=== PATIENT | male | born 1995 | race Caucasian/White ===

== ENCOUNTER 2023-09-13 09:53 | Emergency (ER) | payer BC, SELFPAY ==
[2023-09-13 09:54] VITALS: BP 129/74; PULSE 82; RESP 18; TEMP 36.4; O2SAT 99; BMI 41.1
--- NOTE | 2023-09-13 10:26 | EDS_ITS ---
HPI HPI - GI History of Present Illness Chief Complaint: Flank Pain Detail of Chief Complaint: Right flank pain last 2 days. Informant: patient Abdominal Pain/Flank Pain Onset: Today and Yesterday Timing: Intermittent Quality: Aching Location: Right Flank Current Severity: Mild Maximum Severity: Moderate Worsened by: Nothing Relieved by: Nothing Nausea/Vomiting/Emesis GI Symptom: Positive for Nausea and Vomiting Onset: Today and Yesterday Severity: Mild Diarrhea/Melena/Hematochezia GI Symptom: Negative for Diarrhea or Melena Associated Symptoms Associated Symptoms: Negative for Dysuria, Frequency, Hematuria or Urgency Narrative Narrative: 28-year-old male no seen past medical history. Prior thyroidectomy. Right flank pain a week ago resolved last 2 days has had similar pain. Currently is m ild. He has had some associated nausea and vomiting. No diarrhea. No fever. No dysuria or hematuria. He himself never had a kidney stone has been diagnosed with. However his dad and uncles of all had kidney stones. Prior similar symptoms: No Recent Illness/Hospitalization: No PFSH PFSH Medical History Hypothyroidism Home Medications levothyroxine 150 mcg tablet 150 mcg PO DAILY 08/30/17 [History Last Taken Unknown] naproxen 500 mg tablet 500 mg PO BID PRN #20 tabs 08/30/17 [Rx Last Taken Unknown] ondansetron 4 mg disintegrating tablet 4 mg PO Q8H PRN PRN Nausea #10 tabs 08/30/17 [Rx Last Taken Unknown] Allergy/AdvReac Type Severity Reaction Status Date / Time No Known Allergies Allergy Verified 09/13/23 09:53 Surgical History no surgical history Social History Smoking Status: Never smoker ROS ROS ED ROS Narrative Right flank pain. Nausea vomiting. Review of Systems ROS Unobtainable: Denies due to encephalopathy Constitutional Constitutional ED: Denies chills or fever(s) ENT ENT ED: Denies ear pain Cardiovascular Cardiovascular: Denies chest pain Respiratory/Chest Respiratory/Chest: Denies cough or dyspnea Gastrointestinal Gastrointestinal: Reports nausea, vomiting and other Details: Right flank pain ; Denies abdominal pain, constipation, diarrhea or melena Genitourinary Genitourinary ED: Denies dysuria or hematuria Musculoskeletal Musculoskeletal: Denies arthralgias Integumentary Denies abscess or Abrasions Neurologic Neurologic: Denies headache(s) Psychiatric Psychiatric: Denies anxiety or depression Endocrine Endocrinology: Denies polydipsia or polyphagia Hematologic/Lymphatic Hematologic/Lymphatic: Denies easy bleeding, easy bruising or lymphadenopathy Allergic/Immunologic Allergic/Immunologic ED: Denies mouth swelling, tongue swelling or urticaria EXAM Physical Exam Narrative Exam Narrative: 28-year-old male no acute distress. Vital signs stable afebrile. H EENT exam normal. Neck nontender. Lungs clear to auscultation bilaterally. Heart regul ar rhythm abdomen is soft and nontender. Normal bowel sounds no peritoneal signs. Both the right upper quadrant and right lower quadrant completely nontender. No distention. Back nontender. No CVA tenderness. Moving all 4 extremities. Nontender no edema. Neurologically is awake and alert with no focal motor deficits. Benign exam. Const Vital Signs: 09/13/23 09:54 Temperature 97.5 F L Temperature Source Temporal Pulse Rate 82 Respiratory Rate 18 Blood Pressure 129/74 H Blood Pressure Mean 92 Pulse Ox 99 Oxygen Delivery Method Room Air Positive well nourished and well developed; Negative for cachectic, contractures or unkempt General Appearance ED: well developed and NAD; Negative for unkempt, cachectic, contractures or pallor Nutritional Appearance: Negative for cachectic HEENT Reports moist mucous membranes normocephalic and atraumatic; Negative for trauma or tenderness Eyes PERRL and EOMs intact bilaterally General Eye ED: Negative for pale conjunctiva, scleral icterus or other Neck no lymphadenopathy, supple and no JVD General: Negative for tenderness Lymph Lymphatic: Negative for other Resp normal respiratory effort and clear to auscultation bilaterally Effort and Inspection: Negative for respiratory distress or retractions Auscultation: Negative for rales, rhonchi or wheezes Cardio regular rate, regular rhythm, S1 normal heart sound, S2 normal heart sound and no murmurs Rate: Negative for bradycardia or tachycardic Rhythm: Negative for abnormal rhythm GI non-tender, non-distended and no masses Inspection: Negative for abdominal distention Auscultation: normoactive bowel sounds Palpation: soft; Negative for tender, guarding or rigid Back/Spine no CVA tenderness General Back: Negative for CVA tenderness Cervical Spine: Negative for cervical spine tenderness Thoracic Spine / Upper Back: Negative for thoracic spinal tenderness Lumbar Spine / Lower Back: Negative for lumbar spinal tenderness Extremity General Extremety ED: Negative for edema or tenderness General Extremity: Negative for edema Neuro CN's II-XII intact bilaterally, moves all extremities and no sensory deficits noted Sensorium / Orientation: alert, oriented to person, oriented to place and oriented to time; Negative for orientation impaired, confused, lethargic or stuporous Motor Exam: strength 5/5 throughout Psych mental status grossly normal and thought process normal Appearance: Negative for unkempt Attitude: No agitated Mood & Affect: Negative for depressed, anxious or tearful Skin no wounds General Skin Exam: Negative for jaundice or pallor Lesions: no lesions Rashes: no rashes Trauma: Negative for abrasion Nails: Negative for discolored MDM MDM MDM Narrative Medical decision making narrative: 28-year-old male right flank pain. CAT scan labs and urinalysis being obtained. Currently he is not having any significant pain and did not want any pain medication. Repeat exam patient is doing well at 12:30 PM. Currently is in no pain. We discussed the test results and the CAT scan showing the kidney stone. He did not want any narcotic pain medications for home. Use Tylenol and Motrin. History & Record Review Discussion w/independent historian: Patient Additional record(s) reviewed:: Prior outpatient record, Prior ED visit and Prior labs Lab Data Attestation: I reviewed the patient's lab results. Lab results narrative: CBC normal. White count of 10. H&H 14 and 42. Platelets 355. Electrolytes show a gap of 7 normal BUN of 10 creatinine 0.9. Glucose 112 Urinalysis is normal. No nitrates. No bacteria. No red or white cells. CT flank shows a 2 mm right UVJ stone. Labs: Laboratory Results - last 24 hr 09/13/23 09/13/23 10:30 11:56 WBC 10.3 RBC 4.64 Hgb 14.2 Hct 42.3 MCV 91.2 MCH 30.6 MCHC 33.6 RDW Std Deviation 44.3 H RDW Coeff of Paco 13.3 Plt Count 355 MPV 9.8 Immature Gran % (Auto) 0.200 Neut % (Auto) 84.5 H Lymph % (Auto) 9.0 L Hendricks % (Auto) 5.6 Eos % (Auto) 0.3 Baso % (Auto) 0.4 Absolute Neuts (auto) 8.7 H Absolute Lymphs (auto) 0.92 Nucleated RBC % 0 Sodium 141 Potassium 3.7 Chloride 107 Carbon Dioxide 27.0 Anion Gap 7 BUN 10 Creatinine 0.99 Estim Creat Clear Calc 116.20 Est GFR (MDRD) Af Amer 114 Est GFR (MDRD) Non-Af 94 BUN/Creatinine Ratio 10.1 Glucose 112 H Calcium 9.7 Urine Color Yellow Urine Clarity Clear Urine pH 8.0 Ur Specific [place] 1.010 Urine Protein Negative Urine Glucose (UA) Normal Urine Ketones Negative Urine Occult Blood Negative Urine Nitrite Negative Urine Bilirubin Negative Urine Urobilinogen Normal Ur Leukocyte Esterase Negative Urine RBC 0-5 SEEN Urine WBC 0-5 SEEN Ur Squamous Epith Cells 5-10 SEEN Urine Bacteria RARE Urine Mucus 0 SEEN Radiography Diagnostic Testing: Clinical Impression(s) from Imaging Studies Abdomen/Pelvis CT 09/13/23 10:26 IMPRESSION: 2 mm calculus at the right ureterovesical junction. Electronically Signed: Kanu Bonilla MD at 11:31 EST , Discharge Plan Triage Chief Complaint: Flank Pain ED Provider: Michael Guillory Dx/Rx/DC Orders Clinical Impression: Right kidney stone Instructions: ED Kidney Stone with Pain Prescriptions: No Action levothyroxine 150 MCG tablet 150 mcg PO DAILY ondansetron 4 MG tablet 4 mg PO Q8H PRN PRN (Reason: Nausea) Qty: 10 0RF naproxen 500 MG tablet 500 mg PO BID PRN Qty: 20 0RF Primary Care Provider: Jarrod Dye Referrals: Jarrod Dye [[facility]] - As Needed Activity Restrictions/Additional Instructions: Motrin and Tylenol for pain. Plenty of fluids to help you urinate and pass the stone. Return if intractable pain, fever or vomiting which I do not expect because a 2 mm stone should pass without significant difficulty. Disposition Disposition: Home, Self Care
--- NOTE | 2023-09-13 10:26 | CT_ITS ---
STUDY: CT ABDOMEN AND PELVIS WITHOUT CONTRAST REASON FOR EXAM: Male, 28 years old. Right flank pain with radiation to the right groin. RADIATION DOSAGE (If Supplied By Facility): CTDIvol = ( 23.78 ) mGy, DLP = ( 1289.20 ) mGycm TECHNIQUE: Transaxial images were obtained from the dome of the diaphragm to the symphysis pubis without oral contrast, and without intravenous contrast. Sagittal and coronal images were reconstructed. Individualized dose optimization techniques were used for this CT. COMPARISON: Comparison is made with prior study dated August 30, 2017. FINDINGS: The visualized lung bases are unremarkable. The visualized portions of the heart are within normal limits. There is decreased attenuation of the liver consistent with steatosis. Normal gallbladder and extrahepatic biliary system. Normal spleen. Normal pancreas. Normal bilateral adrenal glands. Normal right kidney. Punctate calculus in the lower pole calyx of the left kidney. 2 mm calculus at the right ureterovesical junction. There is a small hiatal hernia. Normal small intestine. Normal colon. The appendix is visualized and appears normal. Normal abdominal aorta. Normal inferior vena cava. Normal retroperitoneum. Normal urinary bladder. Normal abdominal wall. 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 CT/Abdomen/Pelvis without Cont IMPRESSION: 2 mm calculus at the right ureterovesical junction. Electronically Signed: Kanu Bonilla MD at 11:31 [facility] ,
[2023-09-13 10:58] LABS: Absolute Lymphocyte Count 0.92 X10^3/uL (0.83-4.51); Absolute Neutrophil Count 8.7 X10^3/uL (2.0-7.7); Basophil# 0.04 X10^3/uL; Basophil% 0.4 % (0-1); Eosinophil# 0.03 X10^3/uL; Eosinophils% 0.3 % (0-5); Hematocrit 42.3 % (40-54); Hemoglobin 14.2 g/dL (13.0-16.5); Lymphocyte # 0.92 X10^3/ul (0.83-4.51); Mean Corp Hgb Conc 33.6 g/dL (32-36); Mean Corpuscular Hgb 30.6 pg (27.0-32.0); Mean Corpuscular Volume 91.2 fL (80-94); Mean Platelet Vol. 9.8 fl (6.2-12.0); Monocyte# 0.57 X10^3/uL; Monocyte% 5.6 % (0-10); NRBC Flagged by Analyzer 0 % (0-5); Neutrophil # 8.67 X10^3/uL (2.7-7.7); Neutrophil % 84.5 % (47-70); Platelet Count 355 K/mm3 (150-450); RBC Distribution Width CV 13.3 % (11.6-14.6); RBC Distribution Width SD 44.3 fl (35.1-43.9); Red Blood Count 4.64 M/mm3 (4.6-6.2); White Blood Count 10.3 K/mm3 (4.4-11.0)
[2023-09-13 11:08] LABS: Anion Gap 7 (5-15); BUN 10 mg/dL (7-18); BUN/Creat Ratio 10.1 RATIO (10-20); Calcium,Total 9.7 mg/dL (8.5-10.1); Chloride 107 mmol/L (98-107); Creatinine, Serum 0.99 mg/dL (0.70-1.30); EST Glomerular Filtration Rate 94 mL/min (>60); Est Glom Filt Rate - Afr Amer 114 mL/min (>60); Glucose 112 mg/dL (74-106); Potassium 3.7 mmol/L (3.5-5.1); Sodium Level 141 mmol/L (136-145)
[2023-09-13 12:00] VITALS: BP 129/78; PULSE 74; RESP 18; O2SAT 97
[2023-09-13 12:00] LABS: Mucous, Urine 0 SEEN /hpf (<or=2+)
[2023-09-13 12:06] LABS: Color, Urine Yellow (Yellow); Glucose, Dipstick Normal (Normal); Ketone-Dipstick Negative (Negative); Leukocyte Esterase-Dipstick Negative /ul (Negative); Nitrite-Dipstick Negative (Negative); Occult Blood-Urine Negative /ul (Negative); Protein-Dipstick Negative (Negative); Urine Bilirubin Dipstick Negative (Negative); Urine Clarity Clear (Clear); Urine Urobilinogen Normal (Normal)
[2023-09-13 12:18] LABS: Red Blood Cells-Urine 0-5 SEEN /hpf (0-5); Squamous Epithelial Cells - UA 5-10 SEEN /hpf (0-5); White Blood Cells 0-5 SEEN /hpf (0-5)
[2023-09-13 12:19] LABS: Bacteria RARE /hpf (None Seen)
== END 2023-09-13 12:39 | disposition home or self-care (01) ==
PROVIDERS: Emergency Provider Emergency Medicine; PCP Family Medicine; Visit Provider Emergency Medicine
DX: R11.2 Nausea with vomiting, unspecified (principal); E89.0 Postprocedural hypothyroidism; N20.0 Calculus of kidney
CPT/HCPCS: 74176; 80048; 81001; 85025; 99283; A4216

== ENCOUNTER 2024-06-29 12:31 | Emergency (ER) | payer BC, SELFPAY ==
[2024-06-29 12:31] VITALS: BP 140/91; PULSE 96; RESP 18; TEMP 36.1; O2SAT 100; BMI 39.7
--- NOTE | 2024-06-29 12:34 | ED.RN ---
DOING A LOT OF THE TALKING AND ARGUING WITH WHAT THE PT HAS TO SAY. I THINK YOU ARE DOWN PLAYING IT. PT STATS I AM NOT DOWN PLAYING IT.
--- NOTE | 2024-06-29 12:58 | ED.VIS.LOWEX ---
HPI History of Present Illness Chief Complaint: Edema Informant: patient and spouse/S.O. Narrative Narrative: 28-year-old male presenting to the emergency room with chief complaint of bilateral ankle and redness. Patient states for about 3 weeks he has had swelling in the bilateral ankles lower leg. States he went to the emergency department in [place] and then followed up with on June 25 with primary care. He states the primary care put him on a water pill (HCTZ) which he started 5 days ago. He states now he woke this morning with redness/purple numbness over the inner and outer aspects of the ankles onto the foot particularly the right. He states that he has had blood work and x-rays. I used the patient's phone on my chart to pull up his labs. He had a sed rate of 100 and a CRP of 10.7. He has a history of thyroid disorder and on 19 June he saw his estate tax examiner who did not feel that this reason is related from an endocrine standpoint. Denies any fever. He had a normal uric acid level drawn as well. He states that x-rays were negative. He denies any knee or thigh symptoms. He notes a burning-like sensation. Symptoms seem to get better when he gets up and moves around better the swelling is worse when he stands for long periods of time non-smoker. [facility] Medical History Hypothyroidism Home Medications ?Medication ?Instructions ?Recorded ?Last Taken ?Type levothyroxine 150 mcg tablet 150 mcg PO DAILY 08/30/17 Unknown History naproxen 500 mg tablet 500 mg PO BID PRN #20 tabs 08/30/17 Unknown Rx ondansetron 4 mg disintegrating 4 mg PO Q8H PRN PRN Nausea #10 tabs 08/30/17 Unknown Rx tablet furosemide 40 mg tablet (Lasix) 40 mg PO DAILY #5 tabs 06/29/24 Unknown Rx Allergy/AdvReac Type Severity Reaction Status Date / Time No Known Allergies Allergy Verified 06/29/24 12:32 Social History Smoking Status: Never smoker ROS ROS ED Constitutional Constitutional ED: Denies chills, fever(s) or weight loss Eyes Eyes: Denies change in vision or diplopia ENT ENT ED: Denies ear pain, rhinorrhea or sore throat Cardiovascular Cardiovascular: Denies chest pain, orthopnea, palpitations or racing heartbeat Respiratory/Chest Respiratory/Chest: Denies cough, dyspnea or orthopnea Gastrointestinal Gastrointestinal: Denies abdominal pain, diarrhea, nausea or vomiting Genitourinary Genitourinary ED: Denies dysuria, hematuria or urinary frequency Musculoskeletal Musculoskeletal: Reports other Details: See history of present illness ; Denies arthralgias or myalgias Integumentary Reports rash; Denies abscess Neurologic Neurologic: Reports paresthesias; Denies headache(s) or weakness Psychiatric Psychiatric: Denies anxiety, depression, suicidal ideation or suicidal thoughts Endocrine Endocrinology: Denies polydipsia, polyphagia or polyuria Allergic/Immunologic Allergic/Immunologic ED: Denies mouth swelling, tongue swelling or urticaria EXAM Physical Exam Const Vital Signs: 06/29/24 12:31 Temperature 96.9 F L Temperature Source Temporal Pulse Rate 96 Respiratory Rate 18 Blood Pressure 140/91 H Blood Pressure Mean 107 Pulse Ox 100 Oxygen Delivery Method Room Air Positive well nourished, well developed and obese General Appearance ED: well developed and NAD Nutritional Appearance: obese HEENT Reports normocephalic, head/scalp atraumatic and moist mucous membranes Eyes PERRL and EOMs intact bilaterally Neck no lymphadenopathy, supple and no JVD Resp normal respiratory effort and clear to auscultation bilaterally Cardio regular rate, regular rhythm and no murmurs GI normal to inspection, nondistended, normoactive bowel sounds and non-tender Palpation: soft Back/Spine no CVA tenderness and normal ROM Extremity Extremity Narrative: There is swelling at the level of the ankles. There is some erythema particularly over the lateral right ankle and medial ankle bilaterally. This is in some degree elevation dependent. I do not appreciate any cuts in the skin. There is mild warmth. No lymphangitic streaking. The distal toes appear normal Neuro oriented x3 and CN's II-XII intact bilaterally Sensorium / Orientation: alert Motor Exam: strength 5/5 throughout Psych mental status grossly normal Mood & Affect: Negative for depressed or tearful Skin no rashes or lesions noted and no wounds MDM MDM MDM Narrative Medical decision making narrative: Differential diagnosis includes but not limited to lymphedema cellulitis gout pseudogout inflammatory arthropathies vasculitis renal dysfunction Patient's white count is 8.9 platelet count 542 hemoglobin 12.8 sed rate 66 CRP 112 TSH is low at 0.0009. Normal LFTs normal creatinine potassium 3.2. Patient's symptoms and history do not seem to fit into an obvious pattern. I think it would be difficult to say that this would be gout pseudogout involving the same 2 joints at the same time both legs. Do not think that this would represent bilateral DVTs occurring at the exact same time with no calf pain and only involving the ankles. The erythema could just be due to the length of time of swelling and irritation for compression socks and to some degree the erythema is elevation dependent. Spoke with the patient about this diagnostic quandary. We talked about placing him on steroids and whether or not this could potentially worsen his lymphedema. He is willing to try some prednisone as well as change from HCTZ to Lasix. I will write for some potassium. I will write for 5 days worth and he has an appointment on day 6 with his doctor. History & Record Review Discussion w/independent historian: Patient Lab Data Attestation: I reviewed the patient's lab results. Labs: Laboratory Results - last 24 hr 06/29/24 14:12 WBC 8.9 RBC 4.41 L Hgb 12.8 L Hct 40.7 MCV 92.3 MCH 29.0 MCHC 31.4 L RDW Std Deviation 42.2 RDW Coeff of Paco 12.4 Plt Count 542 H MPV 9.2 Immature Gran % (Auto) 0.600 Neut % (Auto) 64.8 Lymph % (Auto) 16.0 L [place] % (Auto) 13.5 H Eos % (Auto) 4.2 Baso % (Auto) 0.9 Absolute Neuts (auto) 5.8 Absolute Lymphs (auto) 1.42 Nucleated RBC % 0 ESR 66 H Sodium 137 Potassium 3.2 L Chloride 105 Carbon Dioxide 26.0 Anion Gap 6 BUN 14 Creatinine 0.98 Estim Creat Clear Calc 151.06 Est GFR (MDRD) Af Amer 115 Est GFR (MDRD) Non-Af 95 BUN/Creatinine Ratio 14.3 Glucose 91 Calcium 9.3 Total Bilirubin 0.20 Direct Bilirubin 0.11 AST 23 ALT 30 Alkaline Phosphatase 66 C-React Prot Ext Range 112.00 H Total Protein 8.1 Albumin 2.9 L Globulin 5.2 H TSH 0.009 L Discharge Plan Triage Chief Complaint: Edema ED Provider: Avery Lino Dx/Rx/DC Orders Clinical Impression: Swelling of both ankles Instructions: ED Peripheral Edema, Bilateral Prescriptions: New furosemide [Lasix] 40 mg tablet 40 mg PO DAILY Qty: 5 0RF No Action levothyroxine 150 MCG tablet 150 mcg PO DAILY ondansetron 4 MG tablet 4 mg PO Q8H PRN PRN (Reason: Nausea) Qty: 10 0RF naproxen 500 MG tablet 500 mg PO BID PRN Qty: 20 0RF Primary Care Provider: Jarrod Dye Referrals: Jarrod Dye MD [Primary Care Provider] - 1 Week (as scheduled) Print Language: Russian Disposition Disposition: Home, Self Care
[2024-06-29 14:34] LABS: Erythrocyte Sedimentation Rate 66 mm/hr (0-20)
[2024-06-29 14:35] LABS: Absolute Lymphocyte Count 1.42 X10^3/uL (0.83-4.51); Absolute Neutrophil Count 5.8 X10^3/uL (2.0-7.7); Basophil# 0.08 X10^3/uL; Basophil% 0.9 % (0-1); Eosinophil# 0.37 X10^3/uL; Eosinophils% 4.2 % (0-5); Hematocrit 40.7 % (40-54); Hemoglobin 12.8 g/dL (13.0-16.5); Lymphocyte # 1.42 X10^3/ul (0.83-4.51); Mean Corp Hgb Conc 31.4 g/dL (32-36); Mean Corpuscular Volume 92.3 fL (80-94); Mean Platelet Vol. 9.2 fl (6.2-12.0); Monocyte% 13.5 % (0-10); NRBC Flagged by Analyzer 0 % (0-5); Neutrophil # 5.77 X10^3/uL (2.7-7.7); Neutrophil % 64.8 % (47-70); Platelet Count 542 K/mm3 (150-450); RBC Distribution Width CV 12.4 % (11.6-14.6); RBC Distribution Width SD 42.2 fl (35.1-43.9); Red Blood Count 4.41 M/mm3 (4.6-6.2); White Blood Count 8.9 K/mm3 (4.4-11.0)
[2024-06-29 14:45] LABS: AST(SGOT) 23 U/L (15-37); Alanine Aminotransfer ALT/SGPT 30 U/L (16-61); Albumin, Serum 2.9 g/dL (3.2-5.0); Alkaline Phosphatase 66 U/L (45-117); Anion Gap 6 (5-15); BUN 14 mg/dL (7-18); BUN/Creat Ratio 14.3 RATIO (10-20); Bilirubin, Direct 0.11 mg/dL (0.00-0.30); Calcium,Total 9.3 mg/dL (8.5-10.1); Chloride 105 mmol/L (98-107); Creatinine, Serum 0.98 mg/dL (0.70-1.30); EST Glomerular Filtration Rate 95 mL/min (>60); Est Glom Filt Rate - Afr Amer 115 mL/min (>60); Estimated Creatinine Clearance 151.06 ml/min; Globulin 5.2 g/dL (2.2-4.2); Glucose 91 mg/dL (74-106); Potassium 3.2 mmol/L (3.5-5.1); Protein, Total 8.1 g/dL (6.4-8.2); Sodium Level 137 mmol/L (136-145); Thyroid Stim Hormone (TSH) 0.009 uIU/mL (0.358-3.740)
== END 2024-06-29 15:39 | disposition home or self-care (01) ==
PROVIDERS: Emergency Provider Emergency Medicine; PCP Family Medicine; Visit Provider Emergency Medicine
DX: M25.471 Effusion, right ankle (principal); M25.472 Effusion, left ankle; E03.9 Hypothyroidism, unspecified; E66.9 Obesity, unspecified
CPT/HCPCS: 80048; 80076; 84443; 85025; 85652; 86140; 99283